=== PATIENT | female | born 1960 | race American Indian/Alaskan Native ===

== ENCOUNTER 2017-04-30 23:26 | Emergency (ER) | payer OTHER ==
--- NOTE | 2017-05-01 06:38 | Cat Scan Report ---
FINAL REPORT EXAM: CT HEAD/BRAIN WO CON HISTORY: LOC TECHNIQUE: CT imaging acquired through the head without intravenous contrast. Transaxial reformations are provided. PRIORS: 05/24/2015 FINDINGS: The ventricles, cisterns and sulci are within normal limits. No intraparenchymal or extra-axial mass, hemorrhage, or mass effect. German and white-matter differentiation is within normal limits for patient age. Normal spherical shape of the globes. No significant abnormality involving the imaged portions of the paranasal sinuses and mastoid air cells. No skull or facial fracture visualized. IMPRESSION: No acute intracranial abnormality. Consider follow-up MRI as warranted.
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
[2017-05-01 09:48] LABS: Basophils % (Auto) 0.8 % (0.0-1.8); Eosinophils % (Auto) 1.4 % (0.0-4.3); Hemoglobin 14.1 gm/dl (10.1-14.3); Mean Corpuscular HGB Conc 34 % (30-34); Mean Corpuscular Hemoglobin 30 pg (28-32); Mean Corpuscular Volume 88 fl (79-97); Platelet Count 177 K/mm3 (140-440); Red Blood Count 4.77 M/mm3 (3.65-5.03); Red Cell Distribution Width 13.5 % (13.2-15.2); White Blood Count 3.8 K/mm3 (4.5-11.0)
[2017-05-01 10:01] LABS: Anion Gap 15 mmol/L; BUN/Creatinine Ratio 13; Blood Urea Nitrogen 8 mg/dL (7-17); Calcium 9.2 mg/dL (8.4-10.2); Carbon Dioxide 28 mmol/L (22-30); Chloride 98.7 mmol/L (98-107); Glucose 305 mg/dL (65-100); Potassium 3.8 mmol/L (3.6-5.0); Sodium 138 mmol/L (137-145)
[2017-05-01] MEDS ORDERED: CATAPRES PO ONE (10:03)
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
[2017-05-01] MEDS ORDERED: NORCO 5/325 PO ONE (10:49)
[2017-05-01] MEDS ORDERED: NACL 0.9% 1000 ML 1,000 ML IV ONE (11:27)
[2017-05-01 13:20] VITALS: BP 106/54
== END 2017-05-01 13:42 | disposition home or self-care (01) ==
LOC: ED 23:26
DX: M54.2 Cervicalgia (principal); M54.5 Low back pain; E11.65 Type 2 diabetes mellitus with hyperglycemia; I10 Essential (primary) hypertension; Z91.14 Patient's other noncompliance with medication regimen; Z79.4 Long term (current) use of insulin; Z90.49 Acquired absence of other specified parts of digestive tract; V49.49XA Driver injured in collision with other motor vehicles in traffic accident, initial encounter; Y93.89 Activity, other specified; Y99.8 Other external cause status; Y92.89 Other specified places as the place of occurrence of the external cause
CPT/HCPCS: 36415; 70450; 72040; 72100; 80048; 82805; 82962; 85025; 96361; 96372; 96374; 99285; J7030; J1815

== ENCOUNTER 2017-08-30 15:29 | Emergency (ER) | payer SELFPAY ==
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
[2017-08-30 21:35] VITALS: BP 161/97
== END 2017-08-30 21:35 | disposition home or self-care (01) ==
LOC: ED 15:29
DX: S16.1XXA Strain of muscle, fascia and tendon at neck level, initial encounter (principal); M54.12 Radiculopathy, cervical region; I10 Essential (primary) hypertension; E11.9 Type 2 diabetes mellitus without complications; Z90.49 Acquired absence of other specified parts of digestive tract; Z87.442 Personal history of urinary calculi; V89.2XXA Person injured in unspecified motor-vehicle accident, traffic, initial encounter; Y93.89 Activity, other specified; Y99.8 Other external cause status; Y92.410 Unspecified street and highway as the place of occurrence of the external cause
CPT/HCPCS: 99282

== ENCOUNTER 2018-02-15 11:47 | Emergency (ER) | payer SELFPAY ==
[2018-02-15] MEDS ORDERED: NORVASC PO ONE (15:22)
--- NOTE | 2018-02-15 15:28 | Emergency Department Report ---
ED General Adult HPI - General Chief complaint: High BP Stated complaint: HIGH BLOOD PRESSURE Time Seen by Provider: 02/15/18 15:04 Source: patient Mode of arrival: Ambulatory Limitations: No Limitations - History of Present Illness Initial comments: Patient presents to the ED with complaint of elevated blood pressure. Patient states that she takes multiple blood pressure medications but have noticed over the last week his diastolic blood pressures greater than 100. Patient denies any chest pain, abdominal pain, headache. She does endorse having a metallic- like taste in her mouth but states this started after she started taking high- dose vitamin C IV therapy along with glutathione therapy. Patient has no other complaints. - Related Data Home Medications Medication Instructions Recorded Confirmed Last Taken Atorvastatin Calcium [Lipitor] 20 mg PO DAILY 06/26/14 06/26/14 Unknown Metoprolol [Lopressor TAB] 25 mg PO DAILY 06/26/14 06/26/14 Unknown metFORMIN [Glucophage] 500 mg PO BID 06/26/14 06/26/14 Unknown Previous Rx's Medication Instructions Recorded Last Taken Type Insulin NPH/Regular [Novolin 70/30] 20 unit SQ BIDDIAB 30 Days ml 06/27/14 Unknown Rx Acetaminophen/Codeine [Tylenol #3] 1 tab PO Q6H PRN #14 tab 05/25/15 Unknown Rx Ibuprofen [Motrin] 800 mg PO Q8HR PRN #60 tablet 05/25/15 Unknown Rx methOCARBAMOL [Robaxin TAB] 500 mg PO BID #10 tab 05/25/15 Unknown Rx Nitrofurantoin Addison/M-Cryst 100 mg PO Q12HR #20 capsule 05/15/16 Unknown Rx [Macrobid CAP] traMADol [Ultram] 50 mg PO Q6HR PRN #10 tablet 05/15/16 Unknown Rx Amlodipine Besylate [Norvasc] 5 mg PO QDAY #30 tablet 05/01/17 Unknown Rx metFORMIN [Glucophage] 500 mg PO BID #60 tablet 05/01/17 Unknown Rx Cyclobenzaprine [Flexeril] 10 mg PO TID PRN #30 tablet 05/15/17 Unknown Rx Naproxen [Naprosyn] 500 mg PO BID PRN #30 tablet 05/15/17 Unknown Rx Cyclobenzaprine [Flexeril] 10 mg PO QHS PRN #7 tablet 08/30/17 Unknown Rx Ibuprofen [Motrin] 600 mg PO Q8H PRN #30 tablet 08/30/17 Unknown Rx amLODIPine [Norvasc] 10 mg PO DAILY #30 tab 02/15/18 Unknown Rx Allergies Allergy/AdvReac Type Severity Reaction Status Date / Time No Known Allergies Allergy Verified 05/24/15 18:19 ED Review of Systems ROS: Stated complaint: HIGH BLOOD PRESSURE Other details as noted in HPI Comment: All other systems reviewed and negative Constitutional: denies: chills, fever Eyes: denies: eye pain, eye discharge, vision change ENT: denies: ear pain, throat pain Respiratory: denies: cough, shortness of breath, wheezing Cardiovascular: denies: chest pain, palpitations Endocrine: no symptoms reported Gastrointestinal: denies: abdominal pain, nausea, diarrhea Genitourinary: denies: urgency, dysuria, discharge Musculoskeletal: denies: back pain, joint swelling, arthralgia Skin: denies: rash, lesions Neurological: denies: headache, weakness, paresthesias Psychiatric: denies: anxiety, depression Hematological/Lymphatic: denies: easy bleeding, easy bruising ED Past Medical Hx - Past Medical History Hx Hypertension: Yes Hx Congestive Heart Failure: No Hx Diabetes: Yes Hx Kidney Stones: Yes Hx Asthma: No Hx COPD: No - Surgical History Hx Cholecystectomy: Yes - Social History Smoking Status: Never Smoker Substance Use Type: None - Medications Home Medications: Home Medications Medication Instructions Recorded Confirmed Last Taken Type Atorvastatin Calcium [Lipitor] 20 mg PO DAILY 06/26/14 06/26/14 Unknown History Metoprolol [Lopressor TAB] 25 mg PO DAILY 06/26/14 06/26/14 Unknown History metFORMIN [Glucophage] 500 mg PO BID 06/26/14 06/26/14 Unknown History Insulin NPH/Regular [Novolin 70/30] 20 unit SQ BIDDIAB 30 Days ml 06/27/14 Unknown Rx Acetaminophen/Codeine [Tylenol #3] 1 tab PO Q6H PRN #14 tab 05/25/15 Unknown Rx Ibuprofen [Motrin] 800 mg PO Q8HR PRN #60 tablet 05/25/15 Unknown Rx methOCARBAMOL [Robaxin TAB] 500 mg PO BID #10 tab 05/25/15 Unknown Rx Nitrofurantoin Addison/M-Cryst 100 mg PO Q12HR #20 capsule 05/15/16 Unknown Rx [Macrobid CAP] traMADol [Ultram] 50 mg PO Q6HR PRN #10 tablet 05/15/16 Unknown Rx Amlodipine Besylate [Norvasc] 5 mg PO QDAY #30 tablet 05/01/17 Unknown Rx metFORMIN [Glucophage] 500 mg PO BID #60 tablet 05/01/17 Unknown Rx Cyclobenzaprine [Flexeril] 10 mg PO TID PRN #30 tablet 05/15/17 Unknown Rx Naproxen [Naprosyn] 500 mg PO BID PRN #30 tablet 05/15/17 Unknown Rx Cyclobenzaprine [Flexeril] 10 mg PO QHS PRN #7 tablet 08/30/17 Unknown Rx Ibuprofen [Motrin] 600 mg PO Q8H PRN #30 tablet 08/30/17 Unknown Rx amLODIPine [Norvasc] 10 mg PO DAILY #30 tab 02/15/18 Unknown Rx ED Physical Exam - General Limitations: No Limitations General appearance: alert, in no apparent distress - Head Head exam: Present: atraumatic, normocephalic - Eye Eye exam: Present: normal appearance - ENT ENT exam: Present: mucous membranes moist - Neck Neck exam: Present: normal inspection - Respiratory Respiratory exam: Present: normal lung sounds bilaterally. Absent: respiratory distress - Cardiovascular Cardiovascular Exam: Present: regular rate, normal rhythm. Absent: systolic murmur, diastolic murmur, rubs, gallop - GI/Abdominal GI/Abdominal exam: Present: soft, normal bowel sounds - Extremities Exam Extremities exam: Present: normal inspection - Back Exam Back exam: Present: normal inspection - Neurological Exam Neurological exam: Present: alert, oriented X3, CN II-XII intact, reflexes normal. Absent: motor sensory deficit - Psychiatric Psychiatric exam: Present: normal affect, normal mood - Skin Skin exam: Present: warm, dry, intact, normal color. Absent: rash ED Course Vital Signs 02/15/18 11:58 Temperature 98.7 F Pulse Rate 79 Respiratory 20 Rate Blood Pressure 164/94 O2 Sat by Pulse 96 Oximetry ED Medical Decision Making - Medical Decision Making Discussed with patient the treatment plan for her blood pressure. Also discussed with the patient that the tenderness in her mouth that she is concerned about could be secondary to her metformin, high-dose vitamin C therapy which she is receiving from outpatient IV therapy Center ordered glutathione treatment and she is receiving at the same similar as well Critical care attestation.: If time is entered above; I have spent that time in minutes in the direct care of this critically ill patient, excluding procedure time. ED Disposition Clinical Impression: High blood pressure Disposition: TO HOME OR SELFCARE Is pt being admited?: No Does the pt Need Aspirin: No Condition: Stable Instructions: Hypertension (ED) Additional Instructions: return if worse Prescriptions: amLODIPine [Norvasc] 10 mg PO DAILY #30 tab Referrals: VIOLETA GORDON MD [Staff Physician] - 3-5 Days [facility] [Outside] - 3-5 Days Time of Disposition: 15:27
[2018-02-15 15:37] VITALS: BP 168/82
== END 2018-02-15 15:39 | disposition home or self-care (01) ==
LOC: ED 11:47
DX: R03.0 Elevated blood-pressure reading, without diagnosis of hypertension (principal); I10 Essential (primary) hypertension; E11.9 Type 2 diabetes mellitus without complications; Z90.49 Acquired absence of other specified parts of digestive tract; Z79.899 Other long term (current) drug therapy
CPT/HCPCS: 99282

== ENCOUNTER 2018-04-01 01:23 | Emergency (ER) | payer SELFPAY ==
--- NOTE | 2018-04-01 08:08 | Emergency Department Report ---
ED ENT HPI - General Chief complaint: Dental/Oral Stated complaint: TOOTH ACHE Source: patient Mode of arrival: Ambulatory Limitations: No Limitations - History of Present Illness MD complaint: tooth pain Onset/Timin -: days(s) Location: tooth # (29) 1 - pulled tooth, surrounding mucosal swelling Severity: moderate Severity scale (0 -10): 6 Quality: aching, other (throbbing) Consistency: constant Improves with: none Worsens with: eating Context- Dental: history of dental caries, other (extracted tooth) Associated Symptoms: gum swelling, toothache - Related Data Home Medications Medication Instructions Recorded Confirmed Last Taken Atorvastatin Calcium [Lipitor] 20 mg PO DAILY 06/26/14 06/26/14 Unknown Metoprolol [Lopressor TAB] 25 mg PO DAILY 06/26/14 06/26/14 Unknown metFORMIN [Glucophage] 500 mg PO BID 06/26/14 06/26/14 Unknown Previous Rx's Medication Instructions Recorded Last Taken Type Insulin NPH/Regular [Novolin 70/30] 20 unit SQ BIDDIAB 30 Days ml 06/27/14 Unknown Rx Acetaminophen/Codeine [Tylenol #3] 1 tab PO Q6H PRN #14 tab 05/25/15 Unknown Rx Ibuprofen [Motrin] 800 mg PO Q8HR PRN #60 tablet 05/25/15 Unknown Rx methOCARBAMOL [Robaxin TAB] 500 mg PO BID #10 tab 05/25/15 Unknown Rx Nitrofurantoin Storey/M-Cryst 100 mg PO Q12HR #20 capsule 05/15/16 Unknown Rx [Macrobid CAP] traMADol [Ultram] 50 mg PO Q6HR PRN #10 tablet 05/15/16 Unknown Rx Amlodipine Besylate [Norvasc] 5 mg PO QDAY #30 tablet 05/01/17 Unknown Rx metFORMIN [Glucophage] 500 mg PO BID #60 tablet 05/01/17 Unknown Rx Cyclobenzaprine [Flexeril] 10 mg PO TID PRN #30 tablet 05/15/17 Unknown Rx Naproxen [Naprosyn] 500 mg PO BID PRN #30 tablet 05/15/17 Unknown Rx Cyclobenzaprine [Flexeril] 10 mg PO QHS PRN #7 tablet 08/30/17 Unknown Rx Ibuprofen [Motrin] 600 mg PO Q8H PRN #30 tablet 08/30/17 Unknown Rx amLODIPine [Norvasc] 10 mg PO DAILY #30 tab 02/15/18 Unknown Rx Clindamycin [Clindamycin CAP] 300 mg PO Q8H #21 cap 04/01/18 Unknown Rx Naproxen [Naprosyn] 500 mg PO BID #14 tablet 04/01/18 Unknown Rx Allergies Allergy/AdvReac Type Severity Reaction Status Date / Time No Known Allergies Allergy Verified 05/24/15 18:19 ED Dental HPI - General Chief complaint: Dental/Oral Stated complaint: TOOTH ACHE Source: patient Mode of arrival: Ambulatory Limitations: No Limitations - Related Data Home Medications Medication Instructions Recorded Confirmed Last Taken Atorvastatin Calcium [Lipitor] 20 mg PO DAILY 06/26/14 06/26/14 Unknown Metoprolol [Lopressor TAB] 25 mg PO DAILY 06/26/14 06/26/14 Unknown metFORMIN [Glucophage] 500 mg PO BID 06/26/14 06/26/14 Unknown Previous Rx's Medication Instructions Recorded Last Taken Type Insulin NPH/Regular [Novolin 70/30] 20 unit SQ BIDDIAB 30 Days ml 06/27/14 Unknown Rx Acetaminophen/Codeine [Tylenol #3] 1 tab PO Q6H PRN #14 tab 05/25/15 Unknown Rx Ibuprofen [Motrin] 800 mg PO Q8HR PRN #60 tablet 05/25/15 Unknown Rx methOCARBAMOL [Robaxin TAB] 500 mg PO BID #10 tab 05/25/15 Unknown Rx Nitrofurantoin Storey/M-Cryst 100 mg PO Q12HR #20 capsule 05/15/16 Unknown Rx [Macrobid CAP] traMADol [Ultram] 50 mg PO Q6HR PRN #10 tablet 05/15/16 Unknown Rx Amlodipine Besylate [Norvasc] 5 mg PO QDAY #30 tablet 05/01/17 Unknown Rx metFORMIN [Glucophage] 500 mg PO BID #60 tablet 05/01/17 Unknown Rx Cyclobenzaprine [Flexeril] 10 mg PO TID PRN #30 tablet 05/15/17 Unknown Rx Naproxen [Naprosyn] 500 mg PO BID PRN #30 tablet 05/15/17 Unknown Rx Cyclobenzaprine [Flexeril] 10 mg PO QHS PRN #7 tablet 08/30/17 Unknown Rx Ibuprofen [Motrin] 600 mg PO Q8H PRN #30 tablet 08/30/17 Unknown Rx amLODIPine [Norvasc] 10 mg PO DAILY #30 tab 02/15/18 Unknown Rx Clindamycin [Clindamycin CAP] 300 mg PO Q8H #21 cap 04/01/18 Unknown Rx Naproxen [Naprosyn] 500 mg PO BID #14 tablet 04/01/18 Unknown Rx Allergies Allergy/AdvReac Type Severity Reaction Status Date / Time No Known Allergies Allergy Verified 05/24/15 18:19 ED Review of Systems ROS: Stated complaint: TOOTH ACHE Other details as noted in HPI Constitutional: denies: chills, fever ENT: dental pain. denies: ear pain, throat pain Respiratory: denies: cough, shortness of breath, wheezing Cardiovascular: denies: chest pain, palpitations Gastrointestinal: denies: abdominal pain, nausea, diarrhea Neurological: denies: headache, weakness, paresthesias Psychiatric: denies: anxiety, depression ED Past Medical Hx - Past Medical History Previous Medical History?: Yes Hx Hypertension: Yes Hx Congestive Heart Failure: No Hx Diabetes: Yes Hx Kidney Stones: Yes Hx Asthma: No Hx COPD: No - Surgical History Past Surgical History?: Yes Hx Cholecystectomy: Yes - Social History Smoking Status: Never Smoker Substance Use Type: None - Medications Home Medications: Home Medications Medication Instructions Recorded Confirmed Last Taken Type Atorvastatin Calcium [Lipitor] 20 mg PO DAILY 06/26/14 06/26/14 Unknown History Metoprolol [Lopressor TAB] 25 mg PO DAILY 06/26/14 06/26/14 Unknown History metFORMIN [Glucophage] 500 mg PO BID 06/26/14 06/26/14 Unknown History Insulin NPH/Regular [Novolin 70/30] 20 unit SQ BIDDIAB 30 Days ml 06/27/14 Unknown Rx Acetaminophen/Codeine [Tylenol #3] 1 tab PO Q6H PRN #14 tab 05/25/15 Unknown Rx Ibuprofen [Motrin] 800 mg PO Q8HR PRN #60 tablet 05/25/15 Unknown Rx methOCARBAMOL [Robaxin TAB] 500 mg PO BID #10 tab 05/25/15 Unknown Rx Nitrofurantoin Storey/M-Cryst 100 mg PO Q12HR #20 capsule 05/15/16 Unknown Rx [Macrobid CAP] traMADol [Ultram] 50 mg PO Q6HR PRN #10 tablet 05/15/16 Unknown Rx Amlodipine Besylate [Norvasc] 5 mg PO QDAY #30 tablet 05/01/17 Unknown Rx metFORMIN [Glucophage] 500 mg PO BID #60 tablet 05/01/17 Unknown Rx Cyclobenzaprine [Flexeril] 10 mg PO TID PRN #30 tablet 05/15/17 Unknown Rx Naproxen [Naprosyn] 500 mg PO BID PRN #30 tablet 05/15/17 Unknown Rx Cyclobenzaprine [Flexeril] 10 mg PO QHS PRN #7 tablet 08/30/17 Unknown Rx Ibuprofen [Motrin] 600 mg PO Q8H PRN #30 tablet 08/30/17 Unknown Rx amLODIPine [Norvasc] 10 mg PO DAILY #30 tab 02/15/18 Unknown Rx Clindamycin [Clindamycin CAP] 300 mg PO Q8H #21 cap 04/01/18 Unknown Rx Naproxen [Naprosyn] 500 mg PO BID #14 tablet 04/01/18 Unknown Rx ED Physical Exam - General Limitations: No Limitations General appearance: alert, in no apparent distress, obese - ENT ENT exam: Present: mucous membranes moist, other (extracted tooth #29, dark clot in pocket, muscosal swelling, tenderness) - Neck Neck exam: Present: normal inspection - Respiratory Respiratory exam: Present: normal lung sounds bilaterally. Absent: respiratory distress - Cardiovascular Cardiovascular Exam: Present: regular rate, normal rhythm. Absent: systolic murmur, diastolic murmur, rubs, gallop - GI/Abdominal GI/Abdominal exam: Present: soft, normal bowel sounds - Neurological Exam Neurological exam: Present: alert, oriented X3 - Psychiatric Psychiatric exam: Present: normal affect, normal mood - Skin Skin exam: Present: warm, dry, intact, normal color. Absent: rash ED Course Vital Signs 04/01/18 01:33 Temperature 99.0 F Pulse Rate 100 H Respiratory 20 Rate Blood Pressure 169/96 O2 Sat by Pulse 96 Oximetry ED Medical Decision Making - Medical Decision Making Patient is stable and was examined by me. Given ibuprofen 800 once in ER. Susceptible of toothache. Start clindamycin and naproxen. Discussed plan with patient to discharge home which she agreed with plan. Follow up with dentist and at [facility]. Critical care attestation.: If time is entered above; I have spent that time in minutes in the direct care of this critically ill patient, excluding procedure time. ED Disposition Clinical Impression: Toothache, Dental disorder Disposition: TO HOME OR SELFCARE Is pt being admited?: No Does the pt Need Aspirin: No Condition: Stable Instructions: Toothache (ED) Additional Instructions: Complete all days of clindamycin as prescribed for 14 days. Avoid drinking alcohol while taking antibiotics and for up to 24 hours after completion. Apply ice to right side of face to a in decreasing swelling. Follow up with Dentist at [facility] in 24-72 hours. Prescriptions: Clindamycin [Clindamycin CAP] 300 mg PO Q8H #21 cap Naproxen [Naprosyn] 500 mg PO BID #14 tablet Referrals: [facility] [Outside] - 3-5 Days [facility] [Outside] - 3-5 Days [facility] [Outside] - 3-5 Days Forms: Work/School Release Form(ED) Time of Disposition: 08:13 Print Language: ROMANIAN
[2018-04-01 08:26] VITALS: BP 139/89
== END 2018-04-01 08:24 | disposition home or self-care (01) ==
LOC: ED 01:23
DX: K08.89 Other specified disorders of teeth and supporting structures (principal); I10 Essential (primary) hypertension; E11.9 Type 2 diabetes mellitus without complications; Z87.442 Personal history of urinary calculi; Z90.89 Acquired absence of other organs; Z79.4 Long term (current) use of insulin
CPT/HCPCS: 99282

== ENCOUNTER 2018-09-04 00:29 | Emergency (ER) | payer MEDICAID, OTHER ==
[2018-09-04 01:31] VITALS: BP 136/83
[2018-09-04] MEDS ORDERED: ULTRAM PO ONE (02:12)
[2018-09-04] MEDS ORDERED: TRIMOX PO ONE (02:12)
--- NOTE | 2018-09-04 03:18 | Emergency Department Report ---
ED ENT HPI - General Chief complaint: Dental/Oral Stated complaint: MOUTH PAIN/SWOLLEN GUMS Time Seen by Provider: 09/04/18 02:11 Source: patient Mode of arrival: Ambulatory Limitations: No Limitations - History of Present Illness Initial comments: Patient is a 58-year-old -[place] female who presents for returning dental caries with toothache 3 days patient complains of gum swelling and irritation pain is 7/10 presenting complete night's sleep patient has not seen a dentist for this episode there is no fever no chills no nausea vomiting no ear throat pain symptoms are exacerbated by hot and cold Stimuli there is no facial swelling MD complaint: tooth pain Onset/Timin -: week(s) Location: tooth # (19) Severity: moderate Severity scale (0 -10): 7 Quality: aching Consistency: constant Improves with: none Worsens with: other (hot and cold stimuli ) Associated Symptoms: toothache - Related Data Home Medications Medication Instructions Recorded Confirmed Last Taken Atorvastatin Calcium [Lipitor] 20 mg PO DAILY 06/26/14 06/26/14 Unknown Metoprolol [Lopressor TAB] 25 mg PO DAILY 06/26/14 06/26/14 Unknown metFORMIN [Glucophage] 500 mg PO BID 06/26/14 06/26/14 Unknown Previous Rx's Medication Instructions Recorded Last Taken Type Insulin NPH/Regular [Novolin 70/30] 20 unit SQ BIDDIAB 30 Days ml 06/27/14 Unknown Rx Acetaminophen/Codeine [Tylenol #3] 1 tab PO Q6H PRN #14 tab 05/25/15 Unknown Rx Ibuprofen [Motrin] 800 mg PO Q8HR PRN #60 tablet 05/25/15 Unknown Rx methOCARBAMOL [Robaxin TAB] 500 mg PO BID #10 tab 05/25/15 Unknown Rx Nitrofurantoin [place]/M-Cryst 100 mg PO Q12HR #20 capsule 05/15/16 Unknown Rx [Macrobid CAP] traMADol [Ultram] 50 mg PO Q6HR PRN #10 tablet 05/15/16 Unknown Rx Amlodipine Besylate [Norvasc] 5 mg PO QDAY #30 tablet 05/01/17 Unknown Rx metFORMIN [Glucophage] 500 mg PO BID #60 tablet 05/01/17 Unknown Rx Cyclobenzaprine [Flexeril] 10 mg PO TID PRN #30 tablet 05/15/17 Unknown Rx Naproxen [Naprosyn] 500 mg PO BID PRN #30 tablet 05/15/17 Unknown Rx Cyclobenzaprine [Flexeril] 10 mg PO QHS PRN #7 tablet 08/30/17 Unknown Rx Ibuprofen [Motrin] 600 mg PO Q8H PRN #30 tablet 08/30/17 Unknown Rx amLODIPine [Norvasc] 10 mg PO DAILY #30 tab 02/15/18 Unknown Rx Clindamycin [Clindamycin CAP] 300 mg PO Q8H #21 cap 04/01/18 Unknown Rx Naproxen [Naprosyn] 500 mg PO BID #14 tablet 04/01/18 Unknown Rx Amoxicillin 500 mg PO TID 10 Days #30 capsule 09/04/18 Unknown Rx Chlorhexidine Mouthwash [Peridex] 15 ml MM BID #1 bottle 09/04/18 Unknown Rx Tramadol HCl [Ultram] 50 mg PO Q6H PRN #12 tablet 09/04/18 Unknown Rx Allergies Allergy/AdvReac Type Severity Reaction Status Date / Time No Known Allergies Allergy Verified 05/24/15 18:19 ED Dental HPI - General Chief complaint: Dental/Oral Stated complaint: MOUTH PAIN/SWOLLEN GUMS Time Seen by Provider: 09/04/18 02:11 Source: patient Mode of arrival: Ambulatory Limitations: No Limitations - Related Data Home Medications Medication Instructions Recorded Confirmed Last Taken Atorvastatin Calcium [Lipitor] 20 mg PO DAILY 06/26/14 06/26/14 Unknown Metoprolol [Lopressor TAB] 25 mg PO DAILY 06/26/14 06/26/14 Unknown metFORMIN [Glucophage] 500 mg PO BID 06/26/14 06/26/14 Unknown Previous Rx's Medication Instructions Recorded Last Taken Type Insulin NPH/Regular [Novolin 70/30] 20 unit SQ BIDDIAB 30 Days ml 06/27/14 Unknown Rx Acetaminophen/Codeine [Tylenol #3] 1 tab PO Q6H PRN #14 tab 05/25/15 Unknown Rx Ibuprofen [Motrin] 800 mg PO Q8HR PRN #60 tablet 05/25/15 Unknown Rx methOCARBAMOL [Robaxin TAB] 500 mg PO BID #10 tab 05/25/15 Unknown Rx Nitrofurantoin [place]/M-Cryst 100 mg PO Q12HR #20 capsule 05/15/16 Unknown Rx [Macrobid CAP] traMADol [Ultram] 50 mg PO Q6HR PRN #10 tablet 05/15/16 Unknown Rx Amlodipine Besylate [Norvasc] 5 mg PO QDAY #30 tablet 05/01/17 Unknown Rx metFORMIN [Glucophage] 500 mg PO BID #60 tablet 05/01/17 Unknown Rx Cyclobenzaprine [Flexeril] 10 mg PO TID PRN #30 tablet 05/15/17 Unknown Rx Naproxen [Naprosyn] 500 mg PO BID PRN #30 tablet 05/15/17 Unknown Rx Cyclobenzaprine [Flexeril] 10 mg PO QHS PRN #7 tablet 08/30/17 Unknown Rx Ibuprofen [Motrin] 600 mg PO Q8H PRN #30 tablet 08/30/17 Unknown Rx amLODIPine [Norvasc] 10 mg PO DAILY #30 tab 02/15/18 Unknown Rx Clindamycin [Clindamycin CAP] 300 mg PO Q8H #21 cap 04/01/18 Unknown Rx Naproxen [Naprosyn] 500 mg PO BID #14 tablet 04/01/18 Unknown Rx Amoxicillin 500 mg PO TID 10 Days #30 capsule 09/04/18 Unknown Rx Chlorhexidine Mouthwash [Peridex] 15 ml MM BID #1 bottle 09/04/18 Unknown Rx Tramadol HCl [Ultram] 50 mg PO Q6H PRN #12 tablet 09/04/18 Unknown Rx Allergies Allergy/AdvReac Type Severity Reaction Status Date / Time No Known Allergies Allergy Verified 05/24/15 18:19 ED Review of Systems ROS: Stated complaint: MOUTH PAIN/SWOLLEN GUMS Other details as noted in HPI Constitutional: denies: chills, fever Eyes: denies: eye pain, eye discharge, vision change ENT: dental pain Respiratory: denies: cough, shortness of breath, wheezing Cardiovascular: denies: chest pain, palpitations Endocrine: no symptoms reported Gastrointestinal: denies: abdominal pain, nausea, diarrhea Genitourinary: denies: urgency, dysuria, discharge Musculoskeletal: denies: back pain, joint swelling, arthralgia Skin: denies: rash, lesions Neurological: denies: headache, weakness, paresthesias Psychiatric: denies: anxiety, depression Hematological/Lymphatic: denies: easy bleeding, easy bruising ED Past Medical Hx - Past Medical History Hx Hypertension: Yes Hx Congestive Heart Failure: No Hx Diabetes: Yes Hx Kidney Stones: Yes Hx Asthma: No Hx COPD: No - Surgical History Hx Cholecystectomy: Yes - Social History Smoking Status: Never Smoker Substance Use Type: None - Medications Home Medications: Home Medications Medication Instructions Recorded Confirmed Last Taken Type Atorvastatin Calcium [Lipitor] 20 mg PO DAILY 06/26/14 06/26/14 Unknown History Metoprolol [Lopressor TAB] 25 mg PO DAILY 06/26/14 06/26/14 Unknown History metFORMIN [Glucophage] 500 mg PO BID 06/26/14 06/26/14 Unknown History Insulin NPH/Regular [Novolin 70/30] 20 unit SQ BIDDIAB 30 Days ml 06/27/14 Unknown Rx Acetaminophen/Codeine [Tylenol #3] 1 tab PO Q6H PRN #14 tab 05/25/15 Unknown Rx Ibuprofen [Motrin] 800 mg PO Q8HR PRN #60 tablet 05/25/15 Unknown Rx methOCARBAMOL [Robaxin TAB] 500 mg PO BID #10 tab 05/25/15 Unknown Rx Nitrofurantoin [place]/M-Cryst 100 mg PO Q12HR #20 capsule 05/15/16 Unknown Rx [Macrobid CAP] traMADol [Ultram] 50 mg PO Q6HR PRN #10 tablet 05/15/16 Unknown Rx Amlodipine Besylate [Norvasc] 5 mg PO QDAY #30 tablet 05/01/17 Unknown Rx metFORMIN [Glucophage] 500 mg PO BID #60 tablet 05/01/17 Unknown Rx Cyclobenzaprine [Flexeril] 10 mg PO TID PRN #30 tablet 05/15/17 Unknown Rx Naproxen [Naprosyn] 500 mg PO BID PRN #30 tablet 05/15/17 Unknown Rx Cyclobenzaprine [Flexeril] 10 mg PO QHS PRN #7 tablet 08/30/17 Unknown Rx Ibuprofen [Motrin] 600 mg PO Q8H PRN #30 tablet 08/30/17 Unknown Rx amLODIPine [Norvasc] 10 mg PO DAILY #30 tab 02/15/18 Unknown Rx Clindamycin [Clindamycin CAP] 300 mg PO Q8H #21 cap 04/01/18 Unknown Rx Naproxen [Naprosyn] 500 mg PO BID #14 tablet 04/01/18 Unknown Rx Amoxicillin 500 mg PO TID 10 Days #30 capsule 09/04/18 Unknown Rx Chlorhexidine Mouthwash [Peridex] 15 ml MM BID #1 bottle 09/04/18 Unknown Rx Tramadol HCl [Ultram] 50 mg PO Q6H PRN #12 tablet 09/04/18 Unknown Rx ED Physical Exam - General Limitations: No Limitations General appearance: alert, in no apparent distress - Head Head exam: Present: atraumatic, normocephalic - Eye Eye exam: Present: normal appearance, PERRL, EOMI Pupils: Present: normal accommodation - ENT ENT exam: Present: mucous membranes moist, TM's normal bilaterally, normal external ear exam - Expanded ENT Exam Expanded Ear exam: Present: normal external inspection Mouth exam: Present: tongue normal. Absent: trismus, tongue elevation Teeth exam: Present: dental caries (multiple #19 with erythema no focal abscess ), fractured tooth #, dental tenderness #. Absent: gingival enlargement Throat exam: Positive: normal inspection, other (uvula midline no swelling no stridor no exudate no lesion airway is patent ) - Neck Neck exam: Present: normal inspection, full ROM. Absent: tenderness, meningismus, lymphadenopathy, thyromegaly - Expanded Neck Exam Expanded Neck exam: Absent: midline deformity, anterior neck swelling, thyroid mass, carotid bruit, tracheal deviation - Respiratory Respiratory exam: Present: normal lung sounds bilaterally. Absent: respiratory distress, wheezes, stridor, chest wall tenderness - Cardiovascular Cardiovascular Exam: Present: regular rate, normal rhythm, normal heart sounds. Absent: systolic murmur, diastolic murmur, rubs, gallop - GI/Abdominal GI/Abdominal exam: Present: soft, normal bowel sounds. Absent: distended, bruit, hernia - Rectal Rectal exam: Present: deferred - Extremities Exam Extremities exam: Present: normal inspection - Back Exam Back exam: Present: normal inspection, full ROM. Absent: CVA tenderness (R), CVA tenderness (L) - Neurological Exam Neurological exam: Present: alert, oriented X3, CN II-XII intact, normal gait - Psychiatric Psychiatric exam: Present: normal affect, normal mood - Skin Skin exam: Present: warm, dry, intact, normal color. Absent: rash ED Course Vital Signs 09/04/18 01:15 Temperature 97.7 F Pulse Rate 83 Respiratory 16 Rate Blood Pressure 136/83 O2 Sat by Pulse 100 Oximetry ED Medical Decision Making - Medical Decision Making improved, Dx: infected dental carries plan: ultram, amoxicillin , peridex follow up [facility] dentist in 2 days return to ed if symptoms worsen, pt verbalized agreement and understanding of same. Critical care attestation.: If time is entered above; I have spent that time in minutes in the direct care of this critically ill patient, excluding procedure time. ED Disposition Clinical Impression: Infected dental caries Disposition: TO HOME OR SELFCARE Is pt being admited?: No Does the pt Need Aspirin: No Condition: Stable Instructions: Dental Caries (ED), Toothache (ED) Prescriptions: Amoxicillin 500 mg PO TID 10 Days #30 capsule Chlorhexidine Mouthwash [Peridex] 15 ml MM BID #1 bottle Tramadol HCl [Ultram] 50 mg PO Q6H PRN #12 tablet PRN Reason: pain Referrals: [facility] [Outside] - 3-5 Days Forms: Work/School Release Form(ED) Time of Disposition: 03:24
== END 2018-09-04 03:57 | disposition home or self-care (01) ==
LOC: ED 00:29
DX: K02.9 Dental caries, unspecified (principal); K06.8 Other specified disorders of gingiva and edentulous alveolar ridge; I10 Essential (primary) hypertension; Z90.49 Acquired absence of other specified parts of digestive tract; E11.9 Type 2 diabetes mellitus without complications; Z79.899 Other long term (current) drug therapy
CPT/HCPCS: 99282

== ENCOUNTER 2019-04-17 19:00 | Emergency (ER) | payer MEDICAID, OTHER ==
--- NOTE | 2019-04-17 19:16 | Emergency Department Report ---
Blank Doc - Documentation Documentation: 59-year-old female that presents with neck pain with radiation to bilateral ar ms. Stated has also mobile lump to the left upper back area x2 years. This initial assessment/diagnostic orders/clinical plan/treatment(s) is/are subject to change based on patient's health status, clinical progression and re- assessment by fellow clinical providers in the ED. Further treatment and workup at subsequent clinical providers discretion. Patient/guardians urged not to elope from the ED as their condition may be serious if not clinically assessed and managed. Initial orders include: 1- Patient sent to [facility] for further evaluation and treatment 2- xrays
--- NOTE | 2019-04-17 19:56 | XRay Report ---
CERVICAL SPINE, 3 VIEWS INDICATION / CLINICAL INFORMATION: neck pain. COMPARISON: 05/01/2017 FINDINGS: Vertebral body heights and disc spaces are fairly well-preserved. Alignment is normal. No significant acute osseous abnormality is noted. No soft tissue abnormality is identified. Visualized lung apices are clear. I do not see any soft tissue or osseous abnormality that would correspond to the complaint of a palpa ble lump on the back side of her neck on the left. IMPRESSION: No significant osseous or soft tissue abnormality. Signer Name: Binta Pandey MD Signed: 04/17/2019 7:52 PM Workstation Name: [id number]
[2019-04-17 22:20] VITALS: BP 140/82
--- NOTE | 2019-04-17 22:31 | Emergency Department Report ---
ED General Adult HPI - General Chief complaint: Extremity Injury, Upper Stated complaint: LT HAND PAIN/BUMP ON SHOULDER Time Seen by Provider: 04/17/19 19:12 Source: patient Mode of arrival: Ambulatory Limitations: No Limitations - History of Present Illness Initial comments: 59 yo F presents to ED with complaint of a growth on the back of her left shou lder x 2 years. Pt states it is a bump and has been slowly growing over the last 2 yrs. Patient states it is now painful, stating that the pain radiates down into the left arm. She denies numbness and weakness. -: year(s) (2) Location: back Radiation: extremity Severity scale (0 -10): 0 Quality: sharp Consistency: intermittent Improves with: immobilization Worsens with: movement Associated Symptoms: denies: fever/chills - Related Data Home Medications Medication Instructions Recorded Confirmed Last Taken Atorvastatin Calcium [Lipitor] 20 mg PO DAILY 06/26/14 06/26/14 Unknown Metoprolol [Lopressor TAB] 25 mg PO DAILY 06/26/14 06/26/14 Unknown metFORMIN [Glucophage] 500 mg PO BID 06/26/14 06/26/14 Unknown Previous Rx's Medication Instructions Recorded Last Taken Type Insulin NPH/Regular [Novolin 70/30] 20 unit SQ BIDDIAB 30 Days ml 06/27/14 Unknown Rx Acetaminophen/Codeine [Tylenol #3] 1 tab PO Q6H PRN #14 tab 05/25/15 Unknown Rx Ibuprofen [Motrin] 800 mg PO Q8HR PRN #60 tablet 05/25/15 Unknown Rx methOCARBAMOL [Robaxin TAB] 500 mg PO BID #10 tab 05/25/15 Unknown Rx Nitrofurantoin [place]/M-Cryst 100 mg PO Q12HR #20 capsule 05/15/16 Unknown Rx [Macrobid CAP] traMADol [Ultram] 50 mg PO Q6HR PRN #10 tablet 05/15/16 Unknown Rx Amlodipine Besylate [Norvasc] 5 mg PO QDAY #30 tablet 05/01/17 Unknown Rx metFORMIN [Glucophage] 500 mg PO BID #60 tablet 05/01/17 Unknown Rx Cyclobenzaprine [Flexeril] 10 mg PO TID PRN #30 tablet 05/15/17 Unknown Rx Naproxen [Naprosyn] 500 mg PO BID PRN #30 tablet 05/15/17 Unknown Rx Cyclobenzaprine [Flexeril] 10 mg PO QHS PRN #7 tablet 08/30/17 Unknown Rx Ibuprofen [Motrin] 600 mg PO Q8H PRN #30 tablet 08/30/17 Unknown Rx amLODIPine [Norvasc] 10 mg PO DAILY #30 tab 02/15/18 Unknown Rx Clindamycin [Clindamycin CAP] 300 mg PO Q8H #21 cap 04/01/18 Unknown Rx Naproxen [Naprosyn] 500 mg PO BID #14 tablet 04/01/18 Unknown Rx Amoxicillin 500 mg PO TID 10 Days #30 capsule 09/04/18 Unknown Rx Chlorhexidine Mouthwash [Peridex] 15 ml MM BID #1 bottle 09/04/18 Unknown Rx Tramadol HCl [Ultram] 50 mg PO Q6H PRN #12 tablet 09/04/18 Unknown Rx Naproxen [Naprosyn] 500 mg PO BID #20 tablet 04/17/19 Unknown Rx Allergies Allergy/AdvReac Type Severity Reaction Status Date / Time No Known Allergies Allergy Verified 05/24/15 18:19 ED Review of Systems ROS: Stated complaint: LT HAND PAIN/BUMP ON SHOULDER Other details as noted in HPI Comment: All other systems reviewed and negative Constitutional: denies: chills, fever Musculoskeletal: as per HPI Skin: lesions ED Past Medical Hx - Past Medical History Hx Hypertension: Yes Hx Congestive Heart Failure: No Hx Diabetes: Yes Hx Kidney Stones: Yes Hx Asthma: No Hx COPD: No - Surgical History Hx Cholecystectomy: Yes - Social History Smoking Status: Never Smoker Substance Use Type: None - Medications Home Medications: Home Medications Medication Instructions Recorded Confirmed Last Taken Type Atorvastatin Calcium [Lipitor] 20 mg PO DAILY 06/26/14 06/26/14 Unknown History Metoprolol [Lopressor TAB] 25 mg PO DAILY 06/26/14 06/26/14 Unknown History metFORMIN [Glucophage] 500 mg PO BID 06/26/14 06/26/14 Unknown History Insulin NPH/Regular [Novolin 70/30] 20 unit SQ BIDDIAB 30 Days ml 06/27/14 Unknown Rx Acetaminophen/Codeine [Tylenol #3] 1 tab PO Q6H PRN #14 tab 05/25/15 Unknown Rx Ibuprofen [Motrin] 800 mg PO Q8HR PRN #60 tablet 05/25/15 Unknown Rx methOCARBAMOL [Robaxin TAB] 500 mg PO BID #10 tab 05/25/15 Unknown Rx Nitrofurantoin [place]/M-Cryst 100 mg PO Q12HR #20 capsule 05/15/16 Unknown Rx [Macrobid CAP] traMADol [Ultram] 50 mg PO Q6HR PRN #10 tablet 05/15/16 Unknown Rx Amlodipine Besylate [Norvasc] 5 mg PO QDAY #30 tablet 05/01/17 Unknown Rx metFORMIN [Glucophage] 500 mg PO BID #60 tablet 05/01/17 Unknown Rx Cyclobenzaprine [Flexeril] 10 mg PO TID PRN #30 tablet 05/15/17 Unknown Rx Naproxen [Naprosyn] 500 mg PO BID PRN #30 tablet 05/15/17 Unknown Rx Cyclobenzaprine [Flexeril] 10 mg PO QHS PRN #7 tablet 08/30/17 Unknown Rx Ibuprofen [Motrin] 600 mg PO Q8H PRN #30 tablet 08/30/17 Unknown Rx amLODIPine [Norvasc] 10 mg PO DAILY #30 tab 02/15/18 Unknown Rx Clindamycin [Clindamycin CAP] 300 mg PO Q8H #21 cap 04/01/18 Unknown Rx Naproxen [Naprosyn] 500 mg PO BID #14 tablet 04/01/18 Unknown Rx Amoxicillin 500 mg PO TID 10 Days #30 capsule 09/04/18 Unknown Rx Chlorhexidine Mouthwash [Peridex] 15 ml MM BID #1 bottle 09/04/18 Unknown Rx Tramadol HCl [Ultram] 50 mg PO Q6H PRN #12 tablet 09/04/18 Unknown Rx Naproxen [Naprosyn] 500 mg PO BID #20 tablet 04/17/19 Unknown Rx ED Physical Exam - General Limitations: No Limitations General appearance: alert, in no apparent distress - Head Head exam: Present: atraumatic, normocephalic - Eye Eye exam: Present: normal appearance, PERRL, EOMI - ENT ENT exam: Present: mucous membranes moist - Neck Neck exam: Present: normal inspection - Respiratory Respiratory exam: Present: normal lung sounds bilaterally. Absent: respiratory distress - Cardiovascular Cardiovascular Exam: Present: regular rate, normal rhythm - GI/Abdominal GI/Abdominal exam: Absent: distended - Back Exam Back exam: Present: other (soft, mobile mass, approx 6cm in diameter, located on posterior left shoulder; nonerythematous; no purulent discharge noted) - Neurological Exam Neurological exam: Present: alert, oriented X3. Absent: motor sensory deficit - Psychiatric Psychiatric exam: Present: normal affect, normal mood - Skin Skin exam: Present: warm, dry, intact, normal color ED Course Vital Signs 04/17/19 04/17/19 19:13 22:18 Temperature 98.4 F 97.8 F Pulse Rate 90 76 Respiratory 16 18 Rate Blood Pressure 139/86 Blood Pressure 140/82 [Right] O2 Sat by Pulse 98 96 Oximetry ED Medical Decision Making - Radiology Data Radiology results: report reviewed, image reviewed - Medical Decision Making Pt likely has a lipoma. Outpt surgery referral given. - Differential Diagnosis lipoma Critical care attestation.: If time is entered above; I have spent that time in minutes in the direct care of this critically ill patient, excluding procedure time. ED Disposition Clinical Impression: Lipoma of back Disposition: DC-01 TO HOME OR SELFCARE Is pt being admited?: No Condition: Stable Instructions: Lipoma (ED) Prescriptions: Naproxen [Naprosyn] 500 mg PO BID #20 tablet Referrals: PRIMARY CAREMD [Primary Care Provider] - 3-5 Days FOREST NIETO MD [Staff Physician] - 3-5 Days Time of Disposition: 22:34
== END 2019-04-17 23:02 | disposition home or self-care (01) ==
LOC: ED 19:00
DX: D17.1 Benign lipomatous neoplasm of skin and subcutaneous tissue of trunk (principal); I10 Essential (primary) hypertension; E11.9 Type 2 diabetes mellitus without complications; Z87.442 Personal history of urinary calculi; Z90.49 Acquired absence of other specified parts of digestive tract; Z79.4 Long term (current) use of insulin
CPT/HCPCS: 72040

== ENCOUNTER 2019-09-13 13:21 | Emergency (ER) | payer OTHER ==
[2019-09-13 13:42] VITALS: BP 158/97
--- NOTE | 2019-09-13 13:42 | Emergency Department Report ---
Blank Doc - Documentation Documentation: 59-junior-old female that presents with left eye irritation This initial assessment/diagnostic orders/clinical plan/treatment(s) is/are subject to change based on patient's health status, clinical progression and re- assessment by fellow clinical providers in the ED. Further treatment and workup at subsequent clinical providers discretion. Patient/guardians urged not to elope from the ED as their condition may be serious if not clinically assessed and managed. Initial orders include: 1- Patient sent to [facility] for further evaluation and treatment with foreign body sensation. 2- visual testing 3- lange lamp
--- NOTE | 2019-09-13 16:12 | Emergency Department Report ---
ED Eye Problem HPI - General Chief complaint: Eye Problems Stated complaint: LFT EYE ITCHY Time Seen by Provider: 09/13/19 13:40 Source: patient Mode of arrival: Ambulatory Limitations: No Limitations - History of Present Illness Initial comments: 59-year-old -[place] female patient with history of diabetes and hypertension presents with complaints of left eye itching, irritation, and drainage for the past 2 days. She denies any trauma to the eye, photophobia, foreign body sensation, vision changes, or headache. She states there is mild pain that she rates as a 3/10 in severity. She reports her symptoms seem to have started after wearing false lashes. MD chief complaint: eye pain, eye redness -: Sudden - Related Data Home Medications Medication Instructions Recorded Confirmed Last Taken Atorvastatin Calcium [Lipitor] 20 mg PO DAILY 06/26/14 06/26/14 Unknown Metoprolol [Lopressor TAB] 25 mg PO DAILY 06/26/14 06/26/14 Unknown metFORMIN [Glucophage] 500 mg PO BID 06/26/14 06/26/14 Unknown Previous Rx's Medication Instructions Recorded Last Taken Type Insulin NPH/Regular [Novolin 70/30] 20 unit SQ BIDDIAB 30 Days ml 06/27/14 Unknown Rx Acetaminophen/Codeine [Tylenol #3] 1 tab PO Q6H PRN #14 tab 05/25/15 Unknown Rx Ibuprofen [Motrin] 800 mg PO Q8HR PRN #60 tablet 05/25/15 Unknown Rx methOCARBAMOL [Robaxin TAB] 500 mg PO BID #10 tab 05/25/15 Unknown Rx Nitrofurantoin [place]/M-Cryst 100 mg PO Q12HR #20 capsule 05/15/16 Unknown Rx [Macrobid CAP] traMADoL [Ultram] 50 mg PO Q6HR PRN #10 tablet 05/15/16 Unknown Rx Amlodipine Besylate [Norvasc] 5 mg PO QDAY #30 tablet 05/01/17 Unknown Rx metFORMIN [Glucophage] 500 mg PO BID #60 tablet 05/01/17 Unknown Rx Cyclobenzaprine [Flexeril] 10 mg PO TID PRN #30 tablet 05/15/17 Unknown Rx Naproxen [Naprosyn] 500 mg PO BID PRN #30 tablet 05/15/17 Unknown Rx Cyclobenzaprine [Flexeril] 10 mg PO QHS PRN #7 tablet 08/30/17 Unknown Rx Ibuprofen [Motrin] 600 mg PO Q8H PRN #30 tablet 08/30/17 Unknown Rx amLODIPine [Norvasc] 10 mg PO DAILY #30 tab 02/15/18 Unknown Rx Clindamycin [Clindamycin CAP] 300 mg PO Q8H #21 cap 04/01/18 Unknown Rx Naproxen [Naprosyn] 500 mg PO BID #14 tablet 04/01/18 Unknown Rx Amoxicillin 500 mg PO TID 10 Days #30 capsule 09/04/18 Unknown Rx Chlorhexidine Mouthwash [Peridex] 15 ml MM BID #1 bottle 09/04/18 Unknown Rx Tramadol HCl [Ultram] 50 mg PO Q6H PRN #12 tablet 09/04/18 Unknown Rx Naproxen [Naprosyn] 500 mg PO BID #20 tablet 04/17/19 Unknown Rx Loratadine 10 mg PO QDAY 5 Days #5 tablet 09/13/19 Unknown Rx Polymyxin B Sulf/Trimethoprim 1 drop OP Q3H 7 Days #1 bottle 09/13/19 Unknown Rx [Polytrim Eye Drops] Allergies Allergy/AdvReac Type Severity Reaction Status Date / Time No Known Allergies Allergy Verified 05/24/15 18:19 ED Review of Systems ROS: Stated complaint: LFT EYE ITCHY Other details as noted in HPI Constitutional: denies: fever Eyes: eye pain, eye discharge. denies: vision change ENT: denies: throat pain Respiratory: denies: cough Neurological: denies: headache ED Past Medical Hx - Past Medical History Previous Medical History?: Yes Hx Hypertension: Yes Hx Congestive Heart Failure: No Hx Diabetes: Yes Hx Kidney Stones: Yes Hx Asthma: No Hx COPD: No - Surgical History Past Surgical History?: Yes Hx Cholecystectomy: Yes - Social History Smoking Status: Never Smoker Substance Use Type: None - Medications Home Medications: Home Medications Medication Instructions Recorded Confirmed Last Taken Type Atorvastatin Calcium [Lipitor] 20 mg PO DAILY 06/26/14 06/26/14 Unknown History Metoprolol [Lopressor TAB] 25 mg PO DAILY 06/26/14 06/26/14 Unknown History metFORMIN [Glucophage] 500 mg PO BID 06/26/14 06/26/14 Unknown History Insulin NPH/Regular [Novolin 70/30] 20 unit SQ BIDDIAB 30 Days ml 12/16/14 Unknown Rx Acetaminophen/Codeine [Tylenol #3] 1 tab PO Q6H PRN #14 tab 05/25/15 Unknown Rx Ibuprofen [Motrin] 800 mg PO Q8HR PRN #60 tablet 05/25/15 Unknown Rx methOCARBAMOL [Robaxin TAB] 500 mg PO BID #10 tab 05/25/15 Unknown Rx Nitrofurantoin [place]/M-Cryst 100 mg PO Q12HR #20 capsule 05/15/16 Unknown Rx [Macrobid CAP] traMADoL [Ultram] 50 mg PO Q6HR PRN #10 tablet 05/15/16 Unknown Rx Amlodipine Besylate [Norvasc] 5 mg PO QDAY #30 tablet 05/01/17 Unknown Rx metFORMIN [Glucophage] 500 mg PO BID #60 tablet 05/01/17 Unknown Rx Cyclobenzaprine [Flexeril] 10 mg PO TID PRN #30 tablet 05/15/17 Unknown Rx Naproxen [Naprosyn] 500 mg PO BID PRN #30 tablet 05/15/17 Unknown Rx Cyclobenzaprine [Flexeril] 10 mg PO QHS PRN #7 tablet 08/30/17 Unknown Rx Ibuprofen [Motrin] 600 mg PO Q8H PRN #30 tablet 08/30/17 Unknown Rx amLODIPine [Norvasc] 10 mg PO DAILY #30 tab 02/15/18 Unknown Rx Clindamycin [Clindamycin CAP] 300 mg PO Q8H #21 cap 04/01/18 Unknown Rx Naproxen [Naprosyn] 500 mg PO BID #14 tablet 04/01/18 Unknown Rx Amoxicillin 500 mg PO TID 10 Days #30 capsule 09/04/18 Unknown Rx Chlorhexidine Mouthwash [Peridex] 15 ml MM BID #1 bottle 09/04/18 Unknown Rx Tramadol HCl [Ultram] 50 mg PO Q6H PRN #12 tablet 09/04/18 Unknown Rx Naproxen [Naprosyn] 500 mg PO BID #20 tablet 04/17/19 Unknown Rx Loratadine 10 mg PO QDAY 5 Days #5 tablet 09/13/19 Unknown Rx Polymyxin B Sulf/Trimethoprim 1 drop OP Q3H 7 Days #1 bottle 09/13/19 Unknown Rx [Polytrim Eye Drops] ED Physical Exam - General Limitations: No Limitations General appearance: alert, in no apparent distress - Head Head exam: Present: atraumatic, normocephalic - Eye Eye exam: Present: PERRL, EOMI (No pain with eye movements noted), conjunctival injection (Left sided, no active drainage noted), other (No hordeolum/stye or chemosis noted. No foreign body noted with eyelid flip. ). Absent: scleral icterus, periorbital swelling, periorbital tenderness - Expanded Eye Exam Expanded Sclera/Conjunctival: Injection: Left - Neck Neck exam: Present: normal inspection - Respiratory Respiratory exam: Absent: respiratory distress - Cardiovascular Cardiovascular Exam: Present: regular rate - Neurological Exam Neurological exam: Present: alert, oriented X3 - Psychiatric Psychiatric exam: Present: normal affect - Skin Skin exam: Present: warm, dry, intact, normal color. Absent: rash ED Course Vital Signs 09/13/19 13:39 Temperature 97.7 F Pulse Rate 85 Respiratory 16 Rate Blood Pressure 158/97 O2 Sat by Pulse 96 Oximetry ED Medical Decision Making - Medical Decision Making Patient here with conjunctivitis of left eye. Viral versus bacterial conjunctivitis, however given small amount of pain, worsening symptoms, and patient is diabetic will treat with Polytrim. Patient also given Claritin for itchiness. She denied any red flag symptoms. She is stable for discharge home with follow-up with her primary care provider. Discussed strict return precautions in detail with patient who verbalizes understanding. Critical care attestation.: If time is entered above; I have spent that time in minutes in the direct care of this critically ill patient, excluding procedure time. ED Disposition Clinical Impression: Conjunctivitis, acute, left eye Qualifiers: Acute conjunctivitis type: bacterial Qualified Code(s): H10.32 - Unspecified acute conjunctivitis, left eye Disposition: DC-01 TO HOME OR SELFCARE Is pt being admited?: No Condition: Stable Instructions: Conjunctivitis (ED) Prescriptions: Loratadine 10 mg PO QDAY 5 Days #5 tablet Polymyxin B Sulf/Trimethoprim [Polytrim Eye Drops] 1 drop OP Q3H 7 Days #1 bottle Referrals: PRIMARY CARE, [Referring] - 3-5 Days
== END 2019-09-13 17:46 | disposition home or self-care (01) ==
LOC: ED 13:21
DX: H10.32 Unspecified acute conjunctivitis, left eye (principal); I10 Essential (primary) hypertension; E11.9 Type 2 diabetes mellitus without complications; Z87.442 Personal history of urinary calculi; Z90.49 Acquired absence of other specified parts of digestive tract; Z79.1 Long term (current) use of non-steroidal anti-inflammatories (NSAID); Z79.899 Other long term (current) drug therapy; Z79.2 Long term (current) use of antibiotics
CPT/HCPCS: 99282

== ENCOUNTER 2022-01-26 07:39 | Emergency (ER) | payer OTHER ==
[2022-01-26] MEDS ORDERED: KETOROLAC 60 MG/2 ML INJ IM ONE (13:03)
--- NOTE | 2022-01-26 14:11 | Emergency Department Report ---
ED Back Pain/Injury HPI - General Chief Complaint: Back Pain/Injury Stated Complaint: LOWER BACK PAIN Time Seen by Provider: 01/26/22 12:39 Source: patient Limitations: No Limitations - History of Present Illness Initial Comments: This is a 61-year-old female nontoxic, well nourished in appearance, no acute signs of distress presents to the ED with c/o of acute on chronic lower back pain. 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 Patient states has history of sciatica nerve pain which is similar symptoms as today. Patient states that pain radiates through to his left lower extremity. Patient denies any trauma. Denies any bladder or bowel instability. Patient denies any urinary symptoms. Denies any fever, chills, nausea, vomiting, headache, stiff neck, chest pain or shortness of breath. Patient denies any numbness or tingling. Denies any allergies. MD Complaint: back pain -: days(s) Similar Symptoms Previously: Yes Place: work Radiation: left leg Severity: mild Severity scale (0 -10): 8 Quality: aching Consistency: intermittent Improves With: immobilization, sitting upright Worsens With: movement, walking Context: while lifting, turning/twisting Associated Symptoms: denies other symptoms. denies: confusion, weakness, chest pain, numbness, difficulty walking, cough, difficulty urinating, diaphoresis, incontinence, fever/chills, constipation, headaches, abdominal pain, loss of bari etite, malaise, nausea/vomiting, rash, seizure, shortness of breath, syncope - Related Data Home Medications Medication Instructions Recorded Confirmed Last Taken Atorvastatin Calcium [Lipitor] 20 mg PO DAILY 06/26/14 06/26/14 Unknown Metoprolol [Lopressor TAB] 25 mg PO DAILY 06/26/14 06/26/14 Unknown metFORMIN [Glucophage] 500 mg PO BID 06/26/14 06/26/14 Unknown Previous Rx's Medication Instructions Recorded Last Taken Type Insulin NPH/Regular [Novolin 70/30] 20 unit SQ BIDDIAB 30 Days ml 06/27/14 Unknown Rx Acetaminophen/Codeine [Tylenol #3] 1 tab PO Q6H PRN #14 tab 05/25/15 Unknown Rx Ibuprofen [Motrin] 800 mg PO Q8HR PRN #60 tablet 05/25/15 Unknown Rx methOCARBAMOL [Robaxin TAB] 500 mg PO BID #10 tab 05/25/15 Unknown Rx Nitrofurantoin [place]/M-Cryst 100 mg PO Q12HR #20 capsule 05/15/16 Unknown Rx [Macrobid CAP] traMADoL [Ultram] 50 mg PO Q6HR PRN #10 tablet 05/15/16 Unknown Rx Amlodipine Besylate [Norvasc] 5 mg PO QDAY #30 tablet 05/01/17 Unknown Rx metFORMIN [Glucophage] 500 mg PO BID #60 tablet 05/01/17 Unknown Rx Cyclobenzaprine [Flexeril] 10 mg PO TID PRN #30 tablet 05/15/17 Unknown Rx Naproxen [Naprosyn] 500 mg PO BID PRN #30 tablet 05/15/17 Unknown Rx Cyclobenzaprine [Flexeril] 10 mg PO QHS PRN #7 tablet 08/30/17 Unknown Rx Ibuprofen [Motrin] 600 mg PO Q8H PRN #30 tablet 08/30/17 Unknown Rx amLODIPine [Norvasc] 10 mg PO DAILY #30 tab 02/15/18 Unknown Rx Clindamycin [Clindamycin CAP] 300 mg PO Q8H #21 cap 04/01/18 Unknown Rx Naproxen [Naprosyn] 500 mg PO BID #14 tablet 04/01/18 Unknown Rx Amoxicillin 500 mg PO TID 10 Days #30 capsule 09/04/18 Unknown Rx Chlorhexidine Mouthwash [Peridex] 15 ml MM BID #1 bottle 09/04/18 Unknown Rx Tramadol HCl [Ultram] 50 mg PO Q6H PRN #12 tablet 09/04/18 Unknown Rx Naproxen [Naprosyn] 500 mg PO BID #20 tablet 04/17/19 Unknown Rx Loratadine 10 mg PO QDAY 5 Days #5 tablet 09/13/19 Unknown Rx Polymyxin B Sulf/Trimethoprim 1 drop OP Q3H 7 Days #1 bottle 09/13/19 Unknown Rx [Polytrim Eye Drops] Cyclobenzaprine [Flexeril] 10 mg PO QHS PRN #10 tab 01/26/22 Unknown Rx Naproxen 500 mg PO Q12H PRN #12 tab 01/26/22 Unknown Rx Allergies Allergy/AdvReac Type Severity Reaction Status Date / Time No Known Allergies Allergy Verified 05/24/15 18:19 ED Review of Systems ROS: Stated complaint: LOWER BACK PAIN Other details as noted in HPI Comment: All other systems reviewed and negative Constitutional: denies: chills, fever Eyes: denies: eye pain, eye discharge, vision change ENT: denies: ear pain, throat pain Respiratory: denies: cough, shortness of breath, wheezing Cardiovascular: denies: chest pain, palpitations Endocrine: no symptoms reported Gastrointestinal: denies: abdominal pain, nausea, diarrhea Genitourinary: denies: urgency, dysuria, discharge Musculoskeletal: back pain. denies: joint swelling, arthralgia Skin: denies: rash, lesions Neurological: denies: headache, weakness, paresthesias Psychiatric: denies: anxiety, depression Hematological/Lymphatic: denies: easy bleeding, easy bruising ED Past Medical Hx - Past Medical History Previous Medical History?: Yes Hx Hypertension: Yes Hx Congestive Heart Failure: No Hx Diabetes: Yes Hx Kidney Stones: Yes Hx Asthma: No Hx COPD: No Additional medical history: Back pain. Lipoma of left upper back - Surgical History Past Surgical History?: Yes Hx Cholecystectomy: Yes Additional Surgical History: Lipoma removal from left upper back - Social History Smoking Status: Never Smoker Substance Use Type: None - Medications Home Medications: Home Medications Medication Instructions Recorded Confirmed Last Taken Type Atorvastatin Calcium [Lipitor] 20 mg PO DAILY 06/26/14 06/26/14 Unknown History Metoprolol [Lopressor TAB] 25 mg PO DAILY 06/26/14 06/26/14 Unknown History metFORMIN [Glucophage] 500 mg PO BID 06/26/14 06/26/14 Unknown History Insulin NPH/Regular [Novolin 70/30] 20 unit SQ BIDDIAB 30 Days ml 06/27/14 Unknown Rx Acetaminophen/Codeine [Tylenol #3] 1 tab PO Q6H PRN #14 tab 05/25/15 Unknown Rx Ibuprofen [Motrin] 800 mg PO Q8HR PRN #60 tablet 05/25/15 Unknown Rx methOCARBAMOL [Robaxin TAB] 500 mg PO BID #10 tab 05/25/15 Unknown Rx Nitrofurantoin [place]/M-Cryst 100 mg PO Q12HR #20 capsule 05/15/16 Unknown Rx [Macrobid CAP] traMADoL [Ultram] 50 mg PO Q6HR PRN #10 tablet 05/15/16 Unknown Rx Amlodipine Besylate [Norvasc] 5 mg PO QDAY #30 tablet 05/01/17 Unknown Rx metFORMIN [Glucophage] 500 mg PO BID #60 tablet 05/01/17 Unknown Rx Cyclobenzaprine [Flexeril] 10 mg PO TID PRN #30 tablet 05/15/17 Unknown Rx Naproxen [Naprosyn] 500 mg PO BID PRN #30 tablet 05/15/17 Unknown Rx Cyclobenzaprine [Flexeril] 10 mg PO QHS PRN #7 tablet 08/30/17 Unknown Rx Ibuprofen [Motrin] 600 mg PO Q8H PRN #30 tablet 08/30/17 Unknown Rx amLODIPine [Norvasc] 10 mg PO DAILY #30 tab 02/15/18 Unknown Rx Clindamycin [Clindamycin CAP] 300 mg PO Q8H #21 cap 04/01/18 Unknown Rx Naproxen [Naprosyn] 500 mg PO BID #14 tablet 04/01/18 Unknown Rx Amoxicillin 500 mg PO TID 10 Days #30 capsule 09/04/18 Unknown Rx Chlorhexidine Mouthwash [Peridex] 15 ml MM BID #1 bottle 09/04/18 Unknown Rx Tramadol HCl [Ultram] 50 mg PO Q6H PRN #12 tablet 09/04/18 Unknown Rx Naproxen [Naprosyn] 500 mg PO BID #20 tablet 04/17/19 Unknown Rx Loratadine 10 mg PO QDAY 5 Days #5 tablet 09/13/19 Unknown Rx Polymyxin B Sulf/Trimethoprim 1 drop OP Q3H 7 Days #1 bottle 09/13/19 Unknown Rx [Polytrim Eye Drops] Cyclobenzaprine [Flexeril] 10 mg PO QHS PRN #10 tab 01/26/22 Unknown Rx Naproxen 500 mg PO Q12H PRN #12 tab 01/26/22 Unknown Rx ED Physical Exam - General Limitations: No Limitations General appearance: alert, in no apparent distress - Head Head exam: Present: atraumatic, normocephalic - Eye Eye exam: Present: normal appearance - Neck Neck exam: Present: normal inspection, full ROM. Absent: lymphadenopathy - Respiratory Respiratory exam: Absent: respiratory distress - Cardiovascular Cardiovascular Exam: Present: regular rate - GI/Abdominal GI/Abdominal exam: Present: soft. Absent: distended, tenderness - Extremities Exam Extremities exam: Present: normal inspection, full ROM, normal capillary refill. Absent: tenderness, joint swelling, calf tenderness - Back Exam Back exam: Present: normal inspection, full ROM, paraspinal tenderness (Left lumbar paraspinal). Absent: tenderness, CVA tenderness (R), CVA tenderness (L), muscle spasm, vertebral tenderness, rash noted - Expanded Back Exam Expanded Back exam: Absent: saddle anesthesia Back exam: Negative Straight Leg Raising: Left, Right - Neurological Exam Neurological exam: Present: alert, oriented X3, normal gait - Psychiatric Psychiatric exam: Present: normal affect, normal mood - Skin Skin exam: Present: warm, dry, intact, normal color. Absent: rash ED Course Vital Signs 01/26/22 07:56 Temperature 99.4 F Pulse Rate 87 Respiratory 20 Rate Blood Pressure 162/90 [Left] O2 Sat by Pulse 100 Oximetry - Reevaluation(s) Reevaluation #1: 01/26/22 14:11 Patient is speaking in full sentences with no signs of distress noted. ED Medical Decision Making - Medical Decision Making This is a 61-year-old female that presents with low back strain. Patient is stable was examined by me. There is no spinal tenderness. There is no cauda equina syndrome during examination. No bladder or bowel instability. Patient received Toradol 60 mg IM in the ED which stated that her symptoms has resolved and subsided. Patient is discharged with muscle relaxant and Motrin. Patient was instructed not to operate any machinery while taking muscle relaxant as they cause her drowsiness. Patient was referred to Follow-up with a primary care doctor in 3-5 days or if symptoms worsen and continue return to emergency room as soon as possible. At time of discharge, the patient does not seem toxic or ill in appearance. No acute signs of distress noted. Patient agrees to discharge treatment plan of care. No further questions noted by the patient. This chart is dictated with using [employer] Critical care attestation.: If time is entered above; I have spent that time in minutes in the direct care of this critically ill patient, excluding procedure time. ED Disposition Clinical Impression: Low back strain Qualifiers: Encounter type: initial encounter Qualified Code(s): S39.012A - Strain of muscle, fascia and tendon of lower back, initial encounter Disposition: HOME / SELF CARE / HOMELESS Is pt being admited?: No Does the pt Need Aspirin: No Condition: Stable Instructions: Lumbosacral Strain, Cyclobenzaprine tablets Additional Instructions: Follow-up with your primary care doctor in 3-5 days or if symptoms worsen such as bladder or bowel stability, chest pain, short of breath, numbness or tingling sensation in extremities, headache, dizziness, visual changes, nausea vomiting, or abdominal pain, return back to emergency room as was possible. Take naproxen and Flexeril as prescribed. Do not operate heavy machinery while taking Flexeril due to sedation Prescriptions: Cyclobenzaprine [Flexeril] 10 mg PO QHS PRN #10 tab PRN Reason: Muscle Spasm Naproxen 500 mg PO Q12H PRN #12 tab PRN Reason: Pain , Severe (7-10) Referrals: AUGIE WILSON MD [Primary Care Provider] - 3-5 Days PRIMARY CAREMD [Referring] - 3-5 Days Forms: Work/School Release Form(ED) Time of Disposition: 14:14
[2022-01-26 15:15] VITALS: BP 155/85
== END 2022-01-26 14:50 | disposition home or self-care (01) ==
LOC: ED 07:39
DX: S39.012A Strain of muscle, fascia and tendon of lower back, initial encounter (principal); I10 Essential (primary) hypertension; E11.9 Type 2 diabetes mellitus without complications; Z87.442 Personal history of urinary calculi; Z98.890 Other specified postprocedural states; X58.XXXA Exposure to other specified factors, initial encounter; Y93.89 Activity, other specified; Y92.89 Other specified places as the place of occurrence of the external cause; Y99.8 Other external cause status
CPT/HCPCS: 96372; 99282; J1885